=== PATIENT | male | born 1950 | race African-American/Black ===

== ENCOUNTER 2024-12-05 12:31 | Outpatient (CLI) | payer MEDICARE, MEDICAID, SELFPAY ==
--- NOTE | ~2024-12-05 | US_ITS ---
US soft tissue groin LT 12/05/2024 13:48 Indication: Inguinal lymphadenopathy Procedure: High-resolution Limited ultrasound of the left groin Comparison: No prior studies for comparison. Findings: There are normal-appearing left inguinal lymph nodes with fatty hilum. No cortical thickeni ng. No suspicious masses or fluid collections. Impression: 1: Unremarkable left inguinal soft tissue ultrasound. No lymphadenopathy. Reviewed, dictated and finalized at location A. Impression: 1: Unremarkable left inguinal soft tissue ultrasound. No lymphadenopathy.
== END 2024-12-05 12:32 | disposition home or self-care (01) ==
PROVIDERS: PCP Internal Medicine Infectious Disease; Visit Provider Internal Medicine Infectious Disease
DX: R59.0 Localized enlarged lymph nodes (principal)
CPT/HCPCS: 76882

== ENCOUNTER 2025-01-08 13:40 | Outpatient (CLI) | payer MEDICARE, MEDICAID, SELFPAY ==
--- NOTE | ~2025-01-08 | CT_ITS ---
EXAMINATION: CT abdomen pelvis wo con DATE: 01/08/2025 13:54 INDICATION: Hematuria. TECHNIQUE: Computed tomography (CT) of the abdomen and pelvis was performed without intravenous contrast. Automated exposure control and iterative reconstruction technique were employed. The dose-length product was 1375.25 mGy-cm. COMPARISON: None. FINDINGS: The visualized portions of the lung bases demonstrate a small pneumatocele in left lower lobe. No pleural effusion. The heart size is normal. There are coronary artery calcifications. No pericardial effusion. There is mild bilateral gynecomastia. The liver and spleen are normal. There are changes of cholecystectomy. The pancreas, adrenal glands, and left kidney are normal. There are cysts in right kidney measuring up to 1.5 cm. There is no urolithiasis. The prostate is mildly enlarged. There is a left inguinal hernia containing fat. There is diverticulosis of the colon without evidence of diverticulitis. The appendix is normal. There are no dilated loops of bowel. There are no pathologically enlarged lymph nodes. There is no free intraperitoneal fluid. There is moderate lumbar spondylosis. There are bridging endplate osteophytes at multiple levels in the thoracic spine, consistent with diffuse idiopathic skeletal hyperostosis (DISH). IMPRESSION: 1. No etiology for hematuria. 2. Left inguinal hernia containing fat. Reviewed, dictated and finalized at location E.
== END 2025-01-08 13:41 | disposition home or self-care (01) ==
PROVIDERS: PCP Internal Medicine Infectious Disease; Visit Provider Internal Medicine Infectious Disease
DX: R31.29 Other microscopic hematuria (principal); K40.20 Bilateral inguinal hernia, without obstruction or gangrene, not specified as recurrent
CPT/HCPCS: 74176